=== PATIENT | female | born 1965 | race Caucasian/White ===

== ENCOUNTER 2022-03-20 05:26 | Inpatient (IN) | payer OTHER ==
[2022-03-13 14:55] LABS: BASOPHILS # (AUTO) 0.1 X10'3 (0-0.2); BASOPHILS % (AUTO) 1.3 % (0-1); EOSINOPHILS # (AUTO) 0.1 X10'3 (0-0.9); EOSINOPHILS % (AUTO) 1.5 % (0-6); LYMPHOCYTES # (AUTO) 2.9 X10'3 (1.1-4.8); LYMPHOCYTES % (AUTO) 42.6 % (21-51); MEAN CORPUSCULAR HEMOGLOBIN 28.4 PG (27.0-31.0); MEAN CORPUSCULAR HGB CONC 33.3 g/dL (33.0-36.5); MEAN CORPUSCULAR VOLUME 85.3 FL (78-98); MEAN PLATELET VOLUME 7.8 FL (7.4-10.4); MONOCYTES # (AUTO) 0.7 X10'3 (0-0.9); MONOCYTES % (AUTO) 9.6 % (2-12); PRE OP HEMATOCRIT 40.5 % (35.0-45.0); PRE OP HEMOGLOBIN 13.5 g/dL (12.0-16.0); PRE OP PLATELET COUNT 275 X10'3 (140-440); RED BLOOD COUNT 4.74 X10'6 (4.20-5.60); RED CELL DISTRIBUTION WIDTH 14.3 % (11.5-14.5)
[2022-03-13 15:18] LABS: ALBUMIN 3.8 G/DL (3.4-5.0); ALKALINE PHOSPHATASE 106 IU/L (46-116); BLOOD UREA NITROGEN 12 MG/DL (7-18); BUN/CREATININE RATIO 12.8 (6.6-38.0); CALCIUM 8.8 MG/DL (8.5-10.1); CHLORIDE 105 MMOL/L (99-107); CREATININE 0.94 MG/DL (0.40-0.90); PRE OP ANION GAP 7 (8-16); PRE OP AST 45 U/L (10-37); PRE OP BILIRUB, TOTAL 0.4 MG/DL (0.0-1.0); PRE OP GLUCOSE 109 MG/DL (70-104); PRE OP POTASSIUM 4.2 MMOL/L (3.4-5.1); PRE OP SODIUM 137 MMOL/L (135-145); TOTAL CARBON DIOXIDE 24.6 MMOL/L (24-32); TOTAL PROTEIN 7.7 G/DL (6.4-8.2); eGFR 61 ML/MIN
[2022-03-13 15:26] LABS: PRE OP ALT 94 U/L (30-65)
[2022-03-20] VITALS (20 sets, daily range): BP systolic 86–140; BP diastolic 43–93
[~2022-03-20] VITALS: Ht 157.5 cm; Wt 93.0 kg
[~2022-03-20 05:26] MED LIST: ALPR0.5T9 PO; GABA600T13 PO; NAPR-996 PO; TRAM50TA2 PO; ringers solution, lacted 1,000 ML IV SCH
[2022-03-20] MEDS ORDERED: vancomycin 1,500 MG in NS 300ml IV soln IV ONE (05:30)
[2022-03-20] MEDS ORDERED: famotidine 20mg tablet PO ONE (05:30)
[2022-03-20] MEDS ORDERED: ceFAZolin inj. 2,000 MG in dextrose 5%-water 100 ML IV ONE (05:30)
[2022-03-20] MEDS ORDERED: LIDOcaine 1% (10mg/ml) 2ml vial ONE (05:50)
--- NOTE | 2022-03-20 06:30 | NUR ---
PT FOLLOWED INSTRUCTIONS PER TOTAL JOIN PROTOCOL. PT SHOWERED AND USED OINTMENT ORDERED. PT DID READ KNEE BOOK BUT DID NOT WATCH VIDEO ON WEBSITE. PEDAL PULSE PALPABLE AND MARKED W/ SKIN MARKER ON RIGHT FOOT.
[2022-03-20] MEDS ORDERED: morphine 10mg/ml inj. ONE (06:39)
[2022-03-20] MEDS ORDERED: epiNEPHrine 1 mg/ml inj ONE (06:39)
[2022-03-20] MEDS ORDERED: ketorolac trometh. 30mg/ml inj. ONE (06:39)
[2022-03-20] MEDS ORDERED: vancomycin 1,000mg inj ONE (06:39)
[2022-03-20] MEDS ORDERED: ROPIVAcaine 0.5% (5mg/ml) 30ml vial ONE ×3 (06:40→07:29)
[2022-03-20] MEDS ORDERED: Thrombin (Bovine) 5,000 unit vial TP ONE (07:25)
[2022-03-20] MEDS ORDERED: MIDAZolam 1mg/ml 10ml vial ONE (07:25)
[2022-03-20] MEDS ORDERED: fentaNYL/PF 50MCG/1 ML 2ML syringe ONE (07:26)
[2022-03-20] MEDS ORDERED: calcium chloride 100 MG/1 ML inj IV ONE (07:26)
[2022-03-20] MEDS ORDERED: tetracaine 1% (10mg/ml) pres. free inj. ONE (07:28)
[2022-03-20] MEDS ORDERED: proCHLORperazine 10 MG/2 ml inj IV PRN (08:40)
[2022-03-20] MEDS ORDERED: ringers solution, lacted 1,000 ML IV SCH (08:40)
[2022-03-20] MEDS ORDERED: ondansetron/PF 4mg/2ml inj IV PRN (08:40)
[2022-03-20] MEDS ORDERED: ROPIVAcaine 0.2%/PF PUMP/bolus 545 ML ADDCANAL SCH (08:40)
[2022-03-20] MEDS ORDERED: morphine 4 MG/ML inj SYRINge IV PRN (08:40)
[2022-03-20] MEDS ORDERED: meperidine/PF 25mg/ml syringe IV PRN ×3 (08:40)
[2022-03-20] MEDS ORDERED: ROPIVAcaine 0.2% (10 MG/5 ML) BOLUS INJECTION ADDCANAL PRN (08:40)
[2022-03-20] MEDS ORDERED: morphine 2 MG/ML inj. syringe IV PRN (08:40)
[2022-03-20] MEDS ORDERED: tranexamic acid 100mg/ml inj. ONE (09:09)
[2022-03-20] MEDS ORDERED: propofol inj 20 ML IV ONE ×2 (09:37)
[2022-03-20] MEDS ORDERED: acetaminophen 325mg tablet PO PRN (10:25)
[2022-03-20] MEDS: potassium cl 20mEq in 1/2 NS 1,000 ML IV SCH ×2 (10:25→18:25)
[2022-03-20] MEDS ORDERED: oxyCODONE IR 5mg (immed. release) tablet PO PRN (10:25)
[2022-03-20] MEDS ORDERED: diphenhydrAMINE 25mg capsule PO PRN ×2 (10:25)
[2022-03-20] MEDS ORDERED: magnesium hydroxide 30ml (MOM) UD suspension PO PRN (10:25)
[2022-03-20] MEDS ORDERED: NORMAL SALINE IV ONE ×2 (10:25→13:30)
[2022-03-20] MEDS ORDERED: naloxone 0.4 mg/ml inj IV PRN (10:25)
[2022-03-20] MEDS ORDERED: HYDROmorphone inj. 0.5 MG/0.5 ML DISP.SYRIN IV PRN (10:25)
[2022-03-20] MEDS ORDERED: bisacodyl 10mg suppository rectal RC PRN (10:25)
[2022-03-20] MEDS ORDERED: TRANEXAMIC ACID IV ONE ×2 (10:25→13:30)
--- NOTE | 2022-03-20 11:03 | NUR ---
Received from OR via HOSPITAL BED , accompanied by Anesthesiologist: DR EWING and report given by Anesthesiologist. VVS. PATIENT ON ROOM AIR AT 100%. 20G IV IN THE LEFT HAND. RIGHT KNEE HAS DRESSING WITH SLEEVE, POWDER PACK INSERTED. F/C. SCD'S APPLIED. Addendum: 03/20/22 at 1108 by Alondra Mccain RN Amended: Links added.
--- NOTE | 2022-03-20 11:42 | NUR ---
PATIENT MEETS DISCHARGE CRITERIA. VSS. PATIENT ALERT AND ORIENTED, STATES NO PAIN. CALLED REPORT TO LAVELL TREADWELL ON ORTHO. TWO ORDERLIES TRANSPORTED HER. Addendum: 03/20/22 at 1201 by Alondra Mccain RN Amended: Links added.
[2022-03-20] MEDS: gabapentin 300mg capsule PO SCH ×2 (13:05→20:49)
[2022-03-20] MEDS: oxyCODONE IR 5mg (immed. release) tablet PO PRN ×3 (13:07→20:51)
[2022-03-20] MEDS: acetaminophen 325mg tablet PO SCH ×2 (13:50→20:49)
[2022-03-20] MEDS ORDERED: traMADol 50MG tablet PO PRN (15:05)
--- NOTE | 2022-03-20 15:12 | NUR ---
Attempted to call MD regarding patients pain, no answer. attempted to call OR, no answer. Called ortho PA to ask for potentially giving torodol. PA to look over patient and place orders.
[2022-03-20] MEDS ORDERED: ketorolac tromethamine 15mg/ml inj. IV ONE (15:20)
[2022-03-20] MEDS ORDERED: gabapentin 300mg capsule PO ONE (15:20)
[2022-03-20] MEDS: ceFAZolin/D5W- 1GM premix 50 ML IV SCH (15:34)
--- NOTE | 2022-03-20 18:24 | NUR ---
Problems reprioritized. Patient report given, questions answered & plan of care reviewed with Soheila TREADWELL.
[2022-03-20] MEDS: sennosides 8.6mg tablet PO SCH (20:49)
[2022-03-20] MEDS: ALPRAZolam 0.5mg tablet PO SCH (20:49)
[2022-03-20] MEDS ORDERED: non-formulary drug (Gabapentin 1 TAB) PO SCH (21:00)
[2022-03-21] MEDS: ceFAZolin/D5W- 1GM premix 50 ML IV SCH (00:23)
[2022-03-21] MEDS: acetaminophen 325mg tablet PO SCH ×4 (00:58→20:04)
[2022-03-21] MEDS: oxyCODONE IR 5mg (immed. release) tablet PO PRN ×6 (00:59→23:03)
[2022-03-21] MEDS: potassium cl 20mEq in 1/2 NS 1,000 ML IV SCH ×3 (01:45→18:01)
[2022-03-21 02:00] VITALS: BP 121/66
[2022-03-21 06:00] VITALS: BP 132/65
--- NOTE | 2022-03-21 06:20 | NUR ---
Problems reprioritized. Patient report given, questions answered & plan of care reviewed with EBEN Medina.
[2022-03-21 06:33] LABS: BASOPHILS % (AUTO) 0.6 % (0-1); EOSINOPHILS # (AUTO) 0.1 X10'3 (0-0.9); EOSINOPHILS % (AUTO) 0.9 % (0-6); HEMATOCRIT 31.4 % (35.0-45.0); HEMOGLOBIN 10.6 g/dl (12.0-16.0); LYMPHOCYTES # (AUTO) 2.6 X10'3 (1.1-4.8); LYMPHOCYTES % (AUTO) 31.1 % (21-51); MEAN CORPUSCULAR HEMOGLOBIN 28.5 PG (27.0-31.0); MEAN CORPUSCULAR HGB CONC 33.6 g/dL (33.0-36.5); MEAN CORPUSCULAR VOLUME 84.8 FL (78-98); MEAN PLATELET VOLUME 8.4 FL (7.4-10.4); MONOCYTES # (AUTO) 0.7 X10'3 (0-0.9); MONOCYTES % (AUTO) 8.9 % (2-12); NEUTROPHILS # (AUTO) 4.8 X10'3 (1.8-7.7); NEUTROPHILS % (AUTO) 58.5 % (42-75); PLATELET COUNT 224 X10'3 (140-440); RED CELL DISTRIBUTION WIDTH 13.6 % (11.5-14.5); WHITE BLOOD COUNT 8.2 X10'3 (4.5-11.0)
[2022-03-21] MEDS: HYDROmorphone 1 mg/ml syringe IV PRN ×3 (07:33→18:01)
[2022-03-21 08:03] LABS: ANION GAP 6 (8-16); CHLORIDE 102 MMOL/L (99-107); POTASSIUM 3.9 MMOL/L (3.5-5.1); SODIUM 134 MMOL/L (135-145); TOTAL CARBON DIOXIDE 25.8 MMOL/L (24-32)
[2022-03-21] MEDS: ondansetron/PF 4mg/2ml inj IV PRN ×2 (08:42→14:52)
[2022-03-21] MEDS: enoxaparin 40mg/0.4ml syringe SQ SCH (08:42)
[2022-03-21] MEDS: gabapentin 300mg capsule PO SCH ×3 (08:42→20:03)
--- NOTE | 2022-03-21 09:41 | NUR ---
Joint Surgery Consult: Pt s/p R knee surgery this admit per EMR. Pt seen by for written/verbal high protein diet ed w/ RD contact information provided. CASANDRA encouraged pt to contact dietitian's office if further questions/concerns. Addendum: 03/21/22 at [address] Amended: Links added.
[2022-03-21 10:00] VITALS: BP 127/69
[2022-03-21] MEDS: ketorolac tromethamine 15mg/ml inj. IV SCH ×2 (12:42→20:07)
[2022-03-21 13:51] VITALS: BP 127/62
[2022-03-21 18:00] VITALS: BP 122/71
[2022-03-21] MEDS: celeCOXIB 100mg capsule PO SCH (20:00)
[2022-03-21] MEDS: ALPRAZolam 0.5mg tablet PO SCH (20:04)
[2022-03-21] MEDS: sennosides 8.6mg tablet PO SCH (20:05)
[2022-03-21] MEDS: hydrocortisone 1% cream 28gm TP SCH (20:05)
[2022-03-21 22:00] VITALS: BP 129/72
[2022-03-22] MEDS: potassium cl 20mEq in 1/2 NS 1,000 ML IV SCH (02:25)
[2022-03-22] MEDS: acetaminophen 325mg tablet PO SCH ×2 (02:36→07:44)
[2022-03-22] MEDS: ketorolac tromethamine 15mg/ml inj. IV SCH (02:36)
[2022-03-22] MEDS: oxyCODONE IR 5mg (immed. release) tablet PO PRN ×2 (02:37→07:44)
[2022-03-22 06:00] VITALS: BP 122/83
[2022-03-22 07:39] LABS: BASOPHILS % (AUTO) 0.4 % (0-1); EOSINOPHILS # (AUTO) 0.2 X10'3 (0-0.9); EOSINOPHILS % (AUTO) 2.5 % (0-6); HEMATOCRIT 29.9 % (35.0-45.0); HEMOGLOBIN 10.1 g/dl (12.0-16.0); LYMPHOCYTES # (AUTO) 2.4 X10'3 (1.1-4.8); LYMPHOCYTES % (AUTO) 30.3 % (21-51); MEAN CORPUSCULAR HEMOGLOBIN 28.7 PG (27.0-31.0); MEAN CORPUSCULAR HGB CONC 33.8 g/dL (33.0-36.5); MEAN PLATELET VOLUME 8.3 FL (7.4-10.4); MONOCYTES # (AUTO) 0.7 X10'3 (0-0.9); MONOCYTES % (AUTO) 9.6 % (2-12); NEUTROPHILS # (AUTO) 4.4 X10'3 (1.8-7.7); NEUTROPHILS % (AUTO) 57.2 % (42-75); PLATELET COUNT 220 X10'3 (140-440); RED BLOOD COUNT 3.51 X10'6 (4.20-5.60); RED CELL DISTRIBUTION WIDTH 13.8 % (11.5-14.5); WHITE BLOOD COUNT 7.8 X10'3 (4.5-11.0)
[2022-03-22] MEDS: celeCOXIB 100mg capsule PO SCH (07:42)
[2022-03-22] MEDS: enoxaparin 40mg/0.4ml syringe SQ SCH (07:44)
[2022-03-22] MEDS: gabapentin 300mg capsule PO SCH (07:44)
[2022-03-22] MEDS: hydrocortisone 1% cream 28gm TP SCH (07:44)
[2022-03-22 10:00] VITALS: BP 127/65
[2022-03-22] MEDS ORDERED: acetaminophen 325mg tablet PO PRN (10:25)
== END 2022-03-22 11:15 | disposition home or self-care (01) | DRG 470 ==
LOC: PAS IN 05:26 → EDSTATUS 08:30 → ORTHO 4S 11:46
PROVIDERS: ADMIT Orthopaedic Surgery; ATTEND Orthopaedic Surgery
PROC: 3E0T3BZ Introduction of Anesthetic Agent into Peripheral Nerves and Plexi, Percutaneous Approach (ICD-10-PCS; 2022-03-20)
PROC: 0SRC0J9 Replacement of Right Knee Joint with Synthetic Substitute, Cemented, Open Approach (ICD-10-PCS; principal; 2022-03-20 07:31)
DX: M17.11 Unilateral primary osteoarthritis, right knee (principal)
CPT/HCPCS: Z7506; Z7508; 36415; 73560; 80051; 80053; 82948; 85025; 87081; 93005; 97116; 97161; 97530; A4215; A4615; A6253; A6446; A6449; A7000; C1713; C1758; C1776; G0378; J0171; J0690; J1170; J1650; J1885; J2175; J2250; J2274; J2405; J2704; J2795; J3010; J3370; J3480; J3490; J7040; J7060; J7120

== ENCOUNTER 2022-04-25 12:12 | Emergency (ER) | payer OTHER ==
[~2022-04-25 12:12] MED LIST changes: -NAPR-996 PO; -ringers solution, lacted 1,000 ML IV SCH
== END 2022-04-25 15:00 | disposition left against medical advice (07) ==
LOC: ER 12:13
DX: M54.9 Dorsalgia, unspecified (principal); Z53.21 Procedure and treatment not carried out due to patient leaving prior to being seen by health care provider

== ENCOUNTER 2024-09-07 08:08 | Emergency (ER) | payer MEDICARE, OTHER ==
[~2024-09-07] VITALS: Ht 157.5 cm; Wt 84.1 kg
[~2024-09-07 08:08] MED LIST changes: +GABA-1405 PO; -GABA600T13 PO
[2024-09-07] MEDS ORDERED: PANT40TA54 PO (08:54)
[2024-09-07] MEDS ORDERED: ESCI20TA39 PO (08:54)
[2024-09-07] MEDS ORDERED: MECL-302 PO (08:55)
[2024-09-07] MEDS ORDERED: ONDA-243 PO (08:55)
[2024-09-07] MEDS: ondansetron 4mg rapidly disintigrating tab PO ONE (09:12)
[2024-09-07] MEDS: meclizine 12.5mg tablet PO ONE (09:13)
[2024-09-07 09:35] VITALS: BP 104/64; PULSE 67; RESP 14; TEMP 98.2; O2SAT 97
== END 2024-09-07 09:37 | disposition home or self-care (01) ==
LOC: ER 08:09
DX: S40.011A Contusion of right shoulder, initial encounter (principal); H81.13 Benign paroxysmal vertigo, bilateral; Z90.710 Acquired absence of both cervix and uterus; Z90.49 Acquired absence of other specified parts of digestive tract; Z88.8 Allergy status to other drugs, medicaments and biological substances; Z91.018 Allergy to other foods; Z91.048 Other nonmedicinal substance allergy status; Z79.899 Other long term (current) drug therapy; W06.XXXA Fall from bed, initial encounter; Y93.89 Activity, other specified; Y92.89 Other specified places as the place of occurrence of the external cause; Y99.8 Other external cause status
CPT/HCPCS: 73030; 99284; J8597